=== PATIENT | male | born 1945 | race American Indian/Alaskan Native ===

== ENCOUNTER 2020-10-14 19:53 | Emergency (ER) | payer MEDICARE ==
--- NOTE | 2020-10-15 03:51 | Emergency Department Report ---
HPI - General Chief Complaint: Pain General Time Seen by Provider: 10/15/20 03:42 - HPI HPI: This is a 75-year-old -[place] male who presents to the emergency department via EMS from his personal long-term with a complaint of generalized aches and pains. The patient is currently under hospice care while at his personal long-term, with weekly visits. I spoke with [facility] who says that the patient is currently under hospice care for cerebral atherosclerosis and dementia. The patient is currently AAO x2 to person and place but not time. He also appears to have a past medical history of diabetes and hypertension. The patient was seen here in December of last year for a mental health assessment due to some behavioral disturbances, and was found to have some renal insufficiency at that time. Patient denies any chest pain, shortness of breath, or complaints of any neurological deficits. He walks with a walker. After speaking to the hospice company, as well as the personal long-term, the patient is at his current baseline mentation. The patient has been seen in the waiting room and triage having some episodes where he gets agitated or aggressive. At the time of my examination he is calm and resting comfortably. ED Past Medical Hx - Past Medical History Hx Hypertension: Yes Hx Diabetes: Yes - Surgical History Additional Surgical History: AMADOR - Social History Smoking Status: Former Smoker - Medications Home Medications: Home Medications Medication Instructions Recorded Confirmed Last Taken Type Loratadine (Nf) [Claritin (Nf)] 10 mg PO DAILY 03/29/18 01/03/20 Unknown History Aspirin [Aspirin BABY CHEW TAB] 81 mg PO QDAY #30 01/01/20 Unknown Rx Glimepiride [Amaryl] 2 mg PO DAILY #30 tablet 01/01/20 Unknown Rx LORazepam [Ativan] 1 mg PO QHS #30 tablet 01/01/20 Unknown Rx Losartan [Cozaar] 100 mg PO DAILY #30 tablet 01/01/20 Unknown Rx Melatonin [Melatonin 5MG TAB] 10 mg PO QHS #30 tablet 01/01/20 Unknown Rx [place]-3 Fatty Acids/Fish Oil [Fish 2,000 mg PO BID #60 capsule 01/01/20 Unknown Rx Oil] donepeziL [Aricept] 10 mg PO QDAY #30 01/01/20 Unknown Rx risperiDONE [RisperDAL] 1 mg PO BID #60 tablet 01/01/20 Unknown Rx ED Review of Systems ROS: Stated complaint: DOES NOT FEEL WELL Other details as noted in HPI Comment: All other systems reviewed and negative Constitutional: denies: chills, fever Eyes: denies: eye pain, vision change ENT: denies: ear pain, throat pain Respiratory: denies: cough, shortness of breath Cardiovascular: denies: chest pain, palpitations Gastrointestinal: denies: abdominal pain, vomiting Genitourinary: denies: dysuria, discharge Musculoskeletal: arthralgia, myalgia. denies: joint swelling Skin: denies: rash Neurological: denies: numbness, paresthesias Physical Exam - Physical Exam Physical Exam: GENERAL: The patient is well-developed well-nourished. HENT: Normocephalic. Atraumatic. Patient has moist mucous membranes. Oropharynx is clear. Multiple missing teeth. The remaining teeth appear to have dental caries. EYES: Extraocular motions are intact. NECK: Supple. Trachea is midline. CHEST/LUNGS: Clear to auscultation. There is no respiratory distress noted. HEART/CARDIOVASCULAR: Regular. There is no tachycardia. There is no murmur. ABDOMEN: Abdomen is soft, nontender. Patient has normal bowel sounds. SKIN: Skin is warm and dry. NEURO: Patient is awake and follows commands. He is AAO x2 to person and place but not time. The patient has no focal neurologic deficits. No slurred speech. MUSCULOSKELETAL: There is no tenderness or deformity. ED Medical Decision Making - Lab Data Result diagrams: 10/15/20 03:57 10/15/20 03:57 - Medical Decision Making This patient came in from his personal long-term with the complaint of generalized weakness. The [facility] was not contacted prior to the patient coming in to be seen. They are currently seeing and treating him for cerebral atherosclerosis and dementia. Both the hospice company and the personal long-term say that the patient is currently at his baseline mental status. Vital signs have been reassuring throughout his ED course thus far. The patient's labs shows hyperglycemia with a blood sugar of about 310, but there is no elevation in his anion gap and he does not appear to be in diabetic ketoacidosis. The patient has been given a small dose of subcutaneous insulin to decrease the serum blood sugar. The patient has renal insufficiency with a creatinine of 2.4 and a GFR of about 32. This does appear to be a change from his last blood work done here in December of last year. I am waiting for a urine sample to make sure that there is no anuria and the urine specimen will be sent for urinalysis. There is no leukocytosis. There are no electrolyte abnormalities. Given that the patient is at his baseline mental status, lives in a personal long-term, and is currently being treated by [facility], I do not feel that the patient needs admission to the hospital at this time. He will be given a referral for a local ultrasonic hand solderer. His discharge paperwork will include instructions to avoid nephrotoxic agents such as NSAIDs. The patient will be seen by the case management team to assist with discharge planning. Critical Care Time: No Critical care attestation.: If time is entered above; I have spent that time in minutes in the direct care of this critically ill patient, excluding procedure time. ED Disposition Clinical Impression: Generalized pain, Hyperglycemia due to type 2 diabetes mellitus, Renal insufficiency Disposition: DC- TO HOME OR SELFCARE Is pt being admited?: No Condition: Stable Instructions: Diabetes Mellitus Type 2 in Adults (ED) Additional Instructions: Your labs today showed an elevated blood sugar level secondary to your diabetes. Take your medications as prescribed. Try to stay away from foods that are high in sugar, carbohydrates and starches, and keep a blood sugar log. Your labs also showed some decreased kidney function. I have given you a referral for a local ultrasonic hand solderer, Dr. Lofton, for outpatient follow-up. However, due to the decreased kidney function, please avoid any NSAIDs such as Aleve, Advil, naproxen, ibuprofen. Please contact your hospice company immediately upon return to the personal long-term so they can come out for an evaluation. Return to the emergency department with any worsening of your symptoms, new or concerning symptoms not addressed during this current emergency department visit, or with any acute distress.. Referrals: CHRISTINA LOFTON MD [Staff Physician] - 2-3 Days PRIMARY CARE, [Primary Care Provider] - 2-3 Days
[2020-10-15] MEDS ORDERED: ACETAMINOPHEN 325 MG TAB PO ONE (04:09)
[2020-10-15 04:16] LABS: Basophils % (Auto) 0.8 % (0.0-1.8); Eosinophils # (Auto) 0.1 K/mm3 (0.0-0.4); Eosinophils % (Auto) 1.9 % (0.0-4.3); Hematocrit 38.9 % (35.5-45.6); Hemoglobin 12.8 gm/dl (11.8-15.2); Lymphocytes # (Auto) 0.8 K/mm3 (1.2-5.4); Lymphocytes % (Auto) 15.2 % (13.4-35.0); Mean Corpuscular HGB Conc 33 % (32-34); Mean Corpuscular Volume 93 fl (84-94); Monocytes # (Auto) 0.5 K/mm3 (0.0-0.8); Platelet Count 266 K/mm3 (140-440); Red Cell Distribution Width 16.9 % (13.2-15.2)
[2020-10-15 04:34] LABS: Albumin 3.3 g/dL (3.9-5); Calcium 8.5 mg/dL (8.4-10.2)
[2020-10-15] MEDS ORDERED: INSULIN REGULAR, HUMAN 100 UNITS/1 ML SUB-Q ONE (04:36)
[2020-10-15 07:25] VITALS: BP 124/67
[2020-10-15 11:16] LABS: Bacteria,Urine 1+ /HPF (Negative); Bilirubin,Urine NEG (Negative); Blood,Urine NEG (Negative); Color,Urine Yellow (Yellow); Hyaline Casts,Urine 5 /LPF; Mucus,Urine FEW /HPF; Urobilinogen,Urine < 2.0 mg/dL (<2.0)
== END 2020-10-15 15:30 | disposition home or self-care (01) ==
LOC: ED 19:53
DX: E11.65 Type 2 diabetes mellitus with hyperglycemia (principal); N28.9 Disorder of kidney and ureter, unspecified; R52 Pain, unspecified; I10 Essential (primary) hypertension; Z79.899 Other long term (current) drug therapy; Z87.891 Personal history of nicotine dependence; Z88.6 Allergy status to analgesic agent
CPT/HCPCS: 36415; 80053; 81001; 85025